=== PATIENT | male | born 1965 ===

== ENCOUNTER 2021-03-08 16:24 | Emergency (ER) | payer OTHER ==
[2021-03-08 17:47] LABS: Hemoglobin 13.6 g/dL (14.0-18.0); Mean Corpuscular Hemoglobin 32.5 pg (27.0-31.0); Mean Corpuscular Volume 92.8 fL (78.0-98.0); Mean Platelet Volume 6.3 fL (7.4-10.4); Platelet Count 207 thou/uL (130-400); RBC Distribution Width 12.5 % (11.5-14.5); Red Blood Cell (RBC) Count 4.19 mill/uL (4.70-6.10); White Blood Cell (WBC) Count 3.1 thou/uL (4.8-10.8)
[2021-03-08 18:13] LABS: AST (SGOT) 31 U/L (5-34); Anion Gap 13 mmol/L (10-20); Band 4 % (5-11); Bilirubin, Total 0.5 mg/dL (0.2-1.2); Calc. Creatinine Clearance 0 mL/min (70-130); Calcium 10.1 mg/dL (7.8-10.44); Carbon Dioxide 27 mmol/L (22-29); Chloride 94 mmol/L (98-107); Lymphocytes 15 % (21-51); MDiff Complete? YES; Monocytes 25 % (0-10); Neutrophil 54 % (42-75); Platelet Morphology Comment Appears Adequate; Potassium 4.1 mmol/L (3.5-5.1); Protein, Total 7.5 g/dL (6.0-8.3); RBC Morphology Normal; Reactive Lymphocytes 2 % (0-10); Sodium 130 mmol/L (136-145)
[2021-03-08 18:32] LABS: Albumin 4.6 g/dL (3.5-5.0); Globulin 2.9 g/dL (2.4-3.5)
[2021-03-08 18:34] LABS: Glucose 167 mg/dL (70-105)
[2021-03-08 18:37] LABS: Alkaline Phosphatase 54 U/L (40-110)
[2021-03-08 18:38] LABS: BUN (Urea Nitrogen) 9 mg/dL (8.4-25.7)
[2021-03-08 18:40] LABS: ALT (SGPT) 35 U/L (8-55)
[2021-03-08] MEDS ORDERED: Xylocaine 1% w/ Epi 1:100K 10 ML VIAL ONE (20:29)
[2021-03-08] MEDS ORDERED: Bacitracin 1 PK ONE (20:40)
== END 2021-03-08 20:57 | disposition home or self-care (01) ==
LOC: ERS 16:24
DX: S01.01XA Laceration without foreign body of scalp, initial encounter (principal); I10 Essential (primary) hypertension; E11.9 Type 2 diabetes mellitus without complications; E78.00 Pure hypercholesterolemia, unspecified; F17.220 Nicotine dependence, chewing tobacco, uncomplicated; W01.198A Fall on same level from slipping, tripping and stumbling with subsequent striking against other object, initial encounter
CPT/HCPCS: 12002; 36415; 36416; 70450; 80053; 85025; 93005